=== PATIENT | female | born 1945 | race Two or more races ===

== ENCOUNTER 2024-06-03 17:38 | Inpatient (IN) | payer OTHER ==
[~2024-06-03] VITALS: Ht 162.6 cm; Wt 68.0 kg
[2024-06-03] MEDS ORDERED: AVAPRO75 MG (17:45)
[2024-06-03] MEDS ORDERED: SYNTHROID75 MCG (17:46)
--- NOTE | 2024-06-03 17:46 | NUR ---
SE RECIBE PTE ALERTA Y ORIENTADA X3 ESFERAS EN AMBULANCIA SIN FAMILIAR AL MOMENTO.PTE ES TRAIDA POR APARANTE MASA PELVICA CON NGT EN ELENA RT,CANALIZADO EN ANAHY LT CON 9.NSS,PARAMEDICOS INDICAN SE LE ADMINISTRO ZOSYN EN RAMESH HUMACAO DE DONDE PROVIENE DE TRASLADO.AL MOMENTO PTE NIEGA DOLOR,SE OBSERVA ABDOMEN ABDOMEN DISTENDIDO,SE TOSHA S/V Y SE UBICA EN JOSEPHINE CON BARANDAS ELEVADAS.
[2024-06-03] MEDS ORDERED: 0.9 % SODIUM CHLORIDE 1,000 ML IV SCH (18:00)
--- NOTE | 2024-06-03 18:09 | NUR ---
SE ORIENTA PTE SOBRE TX MEDICO EL CUAL REFIERE ENTENDER.SE LE EXTRAEN MUESTRAS BAJO MEDIDAS ASEPTICAS.SE ADMINISTRA CONTRASTRE POR NGT,SE NOTIFICA CT PENDIENTE.
[2024-06-03] MEDS ORDERED: DIATRIZOATE MEGLUMINE, SODIUM 30 ML BOTTLE ONE (18:13)
[2024-06-03 18:14] LABS: HEMATOCRIT 42.2 % (36.0-45.00); HEMOGLOBIN 14.7 g/dL (12.0-15.00); MEAN CELL VOLUME 89.6 fL (80.00-100.00); MEAN CORPUSCULAR HEMOGLOBIN 31.3 pg (27.00-32.0); MEAN CORPUSCULAR HGB CONC 34.9 g/dl (32.0-36.0); PLATELET COUNT 397 K/uL (150-450); RED BLOOD COUNT 4.71 M/uL (4.00-6.00); RED CELL DISTRIBUTION WIDTH 13.4 % (11.5-14.5)
[2024-06-03 18:36] LABS: ALBUMIN 3.2 gm/dL (3.4-5.0); BILIRUBIN TOTAL 0.72 mg/dL (0.3-1.2); CALCIUM 8.6 mg/dL (8.5-10.1); CREATININE SERUM 0.7 mg/dL (0.55-1.02); GFR 81.14; GLOBULINA 3.8 G/DL (2.4-3.5); POTASSIUM 3.87 mEq/L (3.5-5.1)
[2024-06-03 20:58] LABS: URINE APPEARANCE Clear; URINE BILIRRUBIN Negative (NEGATIVE); URINE BLOOD Negative; URINE COLOR Yellow; URINE GLUCOSE Negative (NEGATIVE); URINE KETONE Trace (NEGATIVE); URINE LEUKOCYTE Negative; URINE NITRATE Negative; URINE PROTEIN Negative (NEGATIVE); URINE UROBILINOGEN 0.2 E.U./dl
[2024-06-03 21:02] LABS: URINE BACTERIA 6.2 uL (0.0-1933); URINE EPITHELIAL CELLS 10.9 uL (0.0-38.8); URINE RBC 35.1 uL (0.0-20.8); URINE WBC 5.5 uL (0.0-23.2)
--- NOTE | 2024-06-04 | NUR ---
SE RECIBE PTE ALERTA Y ORIENTADA EN JOSEPHINE EN COMPANIA DE FAMILIAR. PTE CON H/L COLOCA ISAAC DE EDEMA CON IV FLUIDS DE 0.9NSS BAJANDO A 80ML/HR. PTE CON TUBO NGT COLOCADO EN FOSSA RT. PTE EN ESPERA DE RE EVALUACION MEDICA. PTE CONTINUA BAJO OBSERVACION.
--- NOTE | 2024-06-04 01:24 | NUR ---
SE REMUEVE TUBO NGT A PTE INEZ ORDEN MEDICA.
--- NOTE | 2024-06-04 07:57 | NUR ---
SE RECIBE PACIENTE ALERTA Y ORIENTADPO
--- NOTE | 2024-06-04 07:57 | NUR ---
SE RECIBE PACIENTE ALERTA Y ORIENTADO X3, UBICADO EN JOSEPHINE A NIVEL MAS BAJO Y CON BARANDAS ELEVADAS. SE OBSERVA CANALIZACION PATENTE, ISAAC DE EDEMA O ERITEMA. RECIBIENDO IV FLUIDS. PENDIENTE ENTREGA DE UA Y FECALES. PACIENTE CONSULTADA CON 0.
--- NOTE | 2024-06-04 08:05 | NUR ---
SE RECIBE PACIENTE ALERTA Y ORIENTADO X3, UBICADO EN JOSEPHINE A NIVEL MAS BAJO Y BARANDAS ELVADAS. SE OBSERVA CON BUEN PATRON RESPIRATORIO Y PIEL TIBIA AL TACTO. CANALIZACION PATENTE,ISAAC DE EDEMA O ERITEMA. RECIBIENDO IV FLUIDS. PACIENTE CONSULTADA CON DR. MARY TIDWELL.
[2024-06-04] MEDS ORDERED: ONDANSETRON HCL 4 MG in 0.9 % SODIUM CHLORIDE 50 ML IV PRN (12:15)
[2024-06-04] MEDS ORDERED: MORPHINE SULFATE 4 MG/ML CARTRIDGE IV PRN (12:15)
[2024-06-04] MEDS ORDERED: FAMOTIDINE/PF 20 MG in 0.9 % SODIUM CHLORIDE 100 ML IV SCH (12:27)
[2024-06-04] MEDS ORDERED: FAMOTIDINE/PF 20 MG/2 ML VIAL ONE ×2 (12:43→16:23)
[2024-06-04] MEDS ORDERED: ENALAPRILAT DIHYDRATE 2.5 MG/2 ML VIAL IV PRN (12:45)
[2024-06-04 13:55] VITALS: BP 129/77; O2SAT 97
[2024-06-04] MEDS ORDERED: 0.9 % SODIUM CHLORIDE 1,000 ML IV SCH (14:00)
[2024-06-04 14:51] LABS: INR 1.17; PARTIAL THROMBOPLASTIN TIME 29.6 SECONDS (22.0-34.0); PROTHROMBIN TIME 12.6 SECONDS (9.0-11.5)
[2024-06-04 15:18] VITALS: BP 133/77; O2SAT 97
[2024-06-04] MEDS ORDERED: ACETAMINOPHEN 500 MG GEL..CAP PO ONE (16:23)
[2024-06-04 21:05] VITALS: BP 158/67
[2024-06-04 22:00] LABS: TP PERITONEAL FLUID 4.5 g/dl
[2024-06-05 02:18] VITALS: BP 143/60
[2024-06-05 08:30] VITALS: BP 155/79; O2SAT 97
[2024-06-05 16:36] VITALS: BP 123/73; O2SAT 98
[2024-06-06 00:50] VITALS: BP 150/75; O2SAT 96
[2024-06-06 09:14] VITALS: BP 140/77; O2SAT 96
[2024-06-06 16:00] VITALS: BP 143/77; O2SAT 97
[2024-06-07 01:59] VITALS: BP 152/81; O2SAT 95
[2024-06-07 05:06] LABS: CA 19-9 < 2 U/mL (0-35)
[2024-06-07 09:25] VITALS: BP 148/79; O2SAT 97
== END 2024-06-07 17:45 | disposition home or self-care (01) | DRG 375 ==
LOC: ER 17:40 → MEDI 06-04 13:32 → SEC-K 06-04 14:29 → MEDI 06-04 14:56
PROVIDERS: Emergency Medicine; General Practice; Radiology Vascular & Interventional Radiology; ADMIT Internal Medicine; ATTEND Internal Medicine
PROC: 0W9G3ZX Drainage of Peritoneal Cavity, Percutaneous Approach, Diagnostic (ICD-10-PCS; principal; 2024-06-04)
DX: C78.6 Secondary malignant neoplasm of retroperitoneum and peritoneum (principal); R18.0 Malignant ascites; E86.0 Dehydration; E03.9 Hypothyroidism, unspecified; I11.9 Hypertensive heart disease without heart failure; Z95.0 Presence of cardiac pacemaker